=== PATIENT | male | born 1935 | race Caucasian/White ===

== ENCOUNTER 2021-12-15 12:49 | Emergency (ER) | payer MEDICARE ==
[~2021-12-15] VITALS: Ht 175.3 cm; Wt 86.2 kg
[~2021-12-15 12:49] MED LIST: FAMOTIDINE; Z.0.ASPIRIN CHEW81 M; Z.0.FOSAMAX70 MG; Z.0.LOTREL 5-20 MG1; Z.0.SILENOR6 MG; [UNRECOGNIZED DRUG - OTHER]
[2021-12-15 13:19] LABS: BASOPHILS % 0.5 % (0.0-1.0); EOSINOPHILS # (AUTO) 0.3 (0.0-0.4); EOSINOPHILS % 4.9 % (0.0-6.0); HEMATOCRIT 47.1 % (38.2-49.6); HEMOGLOBIN 15.7 g/dL (14.0-18.0); LYMPHOCYTES # (AUTO) 1.2 (1.0-3.2); LYMPHOCYTES % 18.9 % (18.0-39.1); MEAN CORPUSCULAR HGB CONC 33.3 g/dL (31-35); MEAN CORPUSCULAR VOLUME 90.1 fL (81-99); MONOCYTES # (AUTO) 0.6 (0.2-0.8); MONOCYTES % 9.7 % (4.4-11.3); NEUTROPHILS # (AUTO) 4.3 (2.1-6.9); NEUTROPHILS % 65.8 % (38.7-80.0); PLATELET COUNT 183 x10e3/uL (140-360); RED BLOOD COUNT 5.23 x10e6/uL (4.3-5.7); RED CELL DISTRIBUTION WIDTH 13.8 % (11.7-14.4)
[2021-12-15 13:40] LABS: INR 0.9
[2021-12-15 13:41] LABS: PARTIAL THROMBOPLASTIN TIME 27.4 seconds (23.8-35.5)
[2021-12-15 13:48] LABS: ANION GAP 16.5 mmol/L (8-16); CALCIUM 8.9 mg/dL (8.4-10.2); CREATININE, SERUM 1.21 mg/dL (0.72-1.25); POTASSIUM 3.5 mmol/L (3.5-5.1)
[2021-12-15 13:49] LABS: ALBUMIN 3.8 g/dL (3.5-5.0); BILIRUBIN,DIRECT 0.4 mg/dL (0.0-0.5)
[2021-12-15] MEDS ORDERED: IOPAMIDOL 370 MG/ML 100 ML INFUS..BTL INJ ONE (14:06)
== END 2021-12-15 15:22 | disposition home or self-care (01) ==
LOC: ER 12:59
DX: R53.1 Weakness (principal); R42 Dizziness and giddiness; G47.30 Sleep apnea, unspecified; Z85.46 Personal history of malignant neoplasm of prostate
CPT/HCPCS: 36415; 70450; 70496; 70498; 80048; 80076; 85025; 85610; 85730; 93005; 99284; Q9967